=== PATIENT | male | born 1995 | race Caucasian/White ===

== ENCOUNTER → 2018-08-30 21:40 | Outpatient (CLI) | payer OTHER, SELFPAY ==
[2018-08-30 22:18] LABS: Thyroid Stim Hormone (TSH) 1.44 uIU/mL (0.358-3.74)
== END ==
PROVIDERS: Referring Provider Nurse Practitioner; Visit Provider Nurse Practitioner
DX: E03.9 Hypothyroidism, unspecified (principal)
CPT/HCPCS: 84443